=== PATIENT | female | born 1965 | race Caucasian/White ===

== ENCOUNTER → 2020-04-29 10:12 | Outpatient (BNVA) | payer OTHER, SELFPAY | PROVIDERS: PCP Internal Medicine; Referring Provider Internal Medicine; Visit Provider Internal Medicine Gastroenterology | DX: K59.01 Slow transit constipation (principal); E13.9 Other specified diabetes mellitus without complications | CPT/HCPCS: Q3014 ==

== ENCOUNTER → 2020-08-06 11:03 | Outpatient (BNVA) | payer OTHER, SELFPAY | PROVIDERS: PCP Internal Medicine; Visit Provider Internal Medicine Gastroenterology | CPT/HCPCS: 99212 ==

== ENCOUNTER → 2020-09-24 14:02 | Outpatient (BNVA) | payer OTHER, SELFPAY | PROVIDERS: PCP Internal Medicine; Visit Provider Internal Medicine Gastroenterology | DX: Z13.89 Encounter for screening for other disorder (principal) | CPT/HCPCS: Q3014 ==

== ENCOUNTER → 2020-12-23 14:01 | Outpatient (BNVA) | payer OTHER, SELFPAY | PROVIDERS: PCP Internal Medicine; Visit Provider Internal Medicine | DX: E11.40 Type 2 diabetes mellitus with diabetic neuropathy, unspecified (principal); G47.33 Obstructive sleep apnea (adult) (pediatric); Z88.8 Allergy status to other drugs, medicaments and biological substances; Z79.4 Long term (current) use of insulin; Z79.899 Other long term (current) drug therapy | CPT/HCPCS: 99202 ==

== ENCOUNTER → 2021-02-07 10:40 | Outpatient (BNVA) | payer OTHER, SELFPAY | PROVIDERS: PCP Internal Medicine; Visit Provider Internal Medicine | DX: E11.610 Type 2 diabetes mellitus with diabetic neuropathic arthropathy (principal); D12.6 Benign neoplasm of colon, unspecified; E11.40 Type 2 diabetes mellitus with diabetic neuropathy, unspecified; Z88.8 Allergy status to other drugs, medicaments and biological substances | CPT/HCPCS: 99212 ==

== ENCOUNTER → 2021-03-07 10:04 | Outpatient (BNVA) | payer OTHER, SELFPAY | PROVIDERS: Visit Provider Internal Medicine | DX: E11.40 Type 2 diabetes mellitus with diabetic neuropathy, unspecified (principal) | CPT/HCPCS: 99212 ==

== ENCOUNTER → 2022-04-23 08:04 | Outpatient (BNVA) | payer OTHER, SELFPAY | PROVIDERS: PCP Internal Medicine; Referring Provider Internal Medicine; Visit Provider Nurse Practitioner | DX: K59.01 Slow transit constipation (principal); D12.6 Benign neoplasm of colon, unspecified; F41.9 Anxiety disorder, unspecified; G47.33 Obstructive sleep apnea (adult) (pediatric); H54.3 Unqualified visual loss, both eyes; U09.9 Post COVID-19 condition, unspecified | CPT/HCPCS: 99212 ==

== ENCOUNTER 2023-01-07 09:22 | Outpatient (AMB) | payer OTHER, SELFPAY ==
--- NOTE | 2023-01-07 09:27 | MHC.OFFVIS ---
Intake Vital Signs 01/07/23 09:33 Height 5 ft 2 in Weight 132 lb 4.438 oz BMI 24.2 BP 143/62 H Blood Pressure Location Rt brachial Position Sitting Pulse 62 Intake Visit Reasons: Follow up constipation Intake Note: Patient present to in office visit today in follow up of constipation. CC: Patient reports she has been doing great and denies any GI concerns today. She states she is not doing very good because she has been losing her vision since after covid. Rn Community Required: No Accompanied by: Self / Same As Patient Allergies No Known Drug Allergies Allergy (Unknown, Verified 01/07/23 09:29) none adhesive tape Allergy (Mild, Uncoded 08/06/20 11:04) Rash HPI Follow up constipation HPI Details Assessment & Plan (1) Constipation by delayed colonic transit: ?Code(s): K59.01 - Slow transit constipation ?Plan: Lost her vision r/t COVID, she will be seeing many doctors and is even had tubes in planted (sounds like a form of glaucoma) to try to regain her vision.? However she says she has a lot of support and services that are helping her through this. She says that she has been having constipation since she saw Dr. Gomez.? She will not move her bowels every day and frequently will feel very bloated.? However, when she does move them the stool is generally on the softer side.? She was using magnesium but was taking it 1st thing in the morning and found that it would kick in in the middle the night and disturb her sleep because she had to get up to move her bowels.? It also made her feel quite bloated so she does not feel like this was an optimal treatment.? She has never used any of the [id number] laxatives, so I think will start her on senna because it is quite mild and she can use 1-2 tablets at bedtime so that he can work overnight and hopefully she can have a normal bowel movement in the morning.? She would find this much less life limiting that her prior treatment regimen. I bring up that she is due for colonoscopy this year and she is agreeable with going ahead and scheduling it.? Her last colonoscopy was in 2019 and there is a rather complex removal of a large tubular adenoma and a 3 year repeat was recommended. CIC bad, was taking magnesium in am and had to get up to move bowels - no other meds, not working well for her caused bloating Start Senna and titrate. There are no prior problems with anesthesia or sedation.? She denies any cardiac problems she does have obstructive sleep apnea treated with CPAP.? There are no infectious disease problems.? As above she had a complex TA removed in 2019. (2) Tubular adenoma of colon: ?Code(s): D12.6 - Benign neoplasm of colon, unspecified (3) Anxiety: ?Code(s): F41.9 - Anxiety disorder, unspecified (4) BAKARI (obstructive sleep apnea): ?Comment: CPAP tries every night repeating study this week to review having problems with mask. ?Code(s): G47.33 - Obstructive sleep apnea (adult) (pediatric) (5) Vision loss, bilateral: ?Code(s): H54.3 - Unqualified visual loss, both eyes (6) Post covid-19 condition, unspecified: ?Comment: Vision loss ?Code(s): U09.9 - Post COVID-19 condition, unspecified ? ? ? Orders: Orders Comprehensive Met. Panel Today D12.6 - Benign yoly plasm of colon, un specified ? Complete Blood Cou nt Auto Diff Today D12.6 - Benign yoly plasm of colon, un specified ? TSH reflex Free T4 Today K59.01 - Slow wilkinson sit constipation ? Medications: New peg 3350-electroly fide 236-22.74-6.74 -5.86 gram (Golyt alivia) ?? until feca l effluent is thuy r; do not exceed a total volume of 2 ,000 mL 240 mL PO Q10M 4, 000 mL 0RF 1 day Z12.11 - Encounter for screening for malignant neoplas m of colon ? sennosides (senna) 17.2 mg (2 x 8.6 mg) PO BEDTIME 60 caps 3RF constipat ion 30 days K59.01 - Slow wilkinson sit constipation LABS:NOT OBTAINED COLONOSCOPY BIOPSY CORRESPONDENCE On 12/31/22 @ 08:29 MarckFifi roberts Wrote To AviEstela (3) FYI - pt canceled her procedure today. Did not take her prep. Thanks On 12/08/22 @ 14:39 Shirin Fields Wrote To Shirin Fields sent Shirin Fields completed item. On 12/08/22 @ 13:59 Ilene Hinds Wrote To Shirin Fields pt only got the miralax please send bisacodyl tabs thx On 10/19/22 @ 15:11 Ilene Hinds Wrote To Flor Riddle pt has been r/s she still has meds and instructions advised to use original and just update the date and time TODAY'S VISIT She is doing well with her bowels and uses senna prn. She is losing her sight r/t MD and is sad today. She had to cancel her colonoscopy r/t hypoglycemia crisis r/t not eating and no adjustment to her diabetic regimen. I told her to cut lantus in 1/2 and skip Jardiance and have some sugary drinks to sip on so that her sugar does not drop. She is reminded to go for basic labs. Will walk to schedulers to schedule. ROV 6 mos. PFSH Medical History Constipation by delayed colonic transit Diabetes 1.5, managed as type 2 Diabetic neurogenic arthropathy High cholesterol Insomnia Mixed irritable bowel syndrome BAKARI (obstructive sleep apnea) Painful diabetic neuropathy Tubular adenoma of colon Surgical History History of esophagogastroduodenoscopy (EGD) Hx of colonoscopy Family History Mother No problems noted. Father No problems noted. Social History Household Members: None Household Members Other:: grandchild Housing: Apartment Alcohol intake: current Alcohol intake frequency: holidays/special occasions only Alcohol type: wine Current occupational status: disabled Review of Systems Const Denies fatigue, Denies fever(s), Denies night sweats, Denies poor appetite and Denies weight loss Eyes Reports blurry vision and Reports other visual disturbances ENT Reports Normal hearing present, Denies dental pain, Denies dysphagia, Denies hearing loss, Denies mouth pain, Denies odynophagia, Denies throat swelling, Denies tongue swelling and Reports other (Dentition adequate) Card Reports no additional complaints Resp Reports no additional complaints GI Denies abdominal pain, Denies melena, Denies bloating, Denies hematochezia, Reports constipation, Denies GI cramping, Denies dysphagia, Denies excessive flatus, Denies early satiety, Denies heartburn, Denies diarrhea, Denies nausea, Denies odynophagia, Denies vomiting and Denies hematemesis Skin/Breast Denies pruritus, Denies lesions, Denies rash and Denies jaundice Neuro Reports Normal hearing present and Denies Abnormal speech present Endo Denies fatigue Aller/Immun Denies throat swelling and Denies tongue swelling Physical Exam Vital Signs: Last Vital Signs Pulse 62 01/07/23 09:33 BP 143/62 H 01/07/23 09:33 BMI result Body Mass Index 24.2 Const General: cooperative, no acute distress, well developed and well groomed Nutritional Appearance: average body habitus and well nourished Orientation/consciousness: oriented to person, oriented to place and oriented to time Limitations: No language barrier and other limitations (legally blind) HEENT Head: Yes normocephalic and Yes atraumatic Eyes General: appearance normal, both eyes and all related structures Pupils: Equal, round and reactive pupils present Neck Neck: Yes normal visual inspection and Yes no lymphadenopathy Thyroid: Thyroid normal Resp Effort & Inspection: normal respiratory effort and able to speak in complete sentences Auscultation: clear to auscultation bilaterally Cardio Rate: regular rate Rhythm: regular rhythm Heart sounds: Normal, physiologic split S2 sound present Peripheral pulses: radial pulses present and posterior tibial pulses present GI Inspection: No distended and No Abdominal panniculus present Palpation (GI): Soft to palpation, nontender, no guarding, not rigid and No hepatosplenomegaly present Percussion: Yes normal to percussion Auscultation: normal bowel sounds Rectal Exam - Female: deferred Skin General skin exam: no rashes or lesions noted, turgor normal, skin not dry, no jaundice, No spider nevi and no striae Rashes: no rashes Nails: normal Neuro General: oriented to person, oriented to place and oriented to time Cranial nerves: Yes Equal, round and reactive pupils present and Yes Normal hearing present Speech: No Abnormal speech present Extrem General: Yes normal to inspection, No clubbing, No cyanosis and No edema Psych Appearance: grossly normal and well kempt Mental Status: mental status grossly normal Speech and movement: Normal speech and movement present Affect: normal affect Attitude: cooperative Thought process: Normal thought process present and not confabulating Thought content: Normal thought content present Insight: Fair insight present (Psych) Judgement: Fair judgement present (Psych) Assessment & Plan Assessment & Plan (1) Constipation by delayed colonic transit: Code(s): K59.01 - Slow transit constipation Plan: She is doing well with her bowels and uses senna prn. She is losing her sight r/t MD and is sad today. She had to cancel her colonoscopy r/t hypoglycemia crisis r/t not eating and no adjustment to her diabetic regimen. I told her to cut lantus in 1/2 and skip Jardiance and have some sugary drinks to sip on so that her sugar does not drop. She is reminded to go for basic labs. Will walk to schedulers to schedule. ROV 6 mos. (2) Macular degeneration: Code(s): H35.30 - Unspecified macular degeneration (3) Vision loss, bilateral: Code(s): H54.3 - Unqualified visual loss, both eyes Coding Level of Care Code Est Pt Level 3 (62422) Diagnoses Constipation by delayed colonic transit K59.01 Macular degeneration H35.30 Vision loss, bilateral H54.3
[2023-01-07 09:33] VITALS: BP 143/62; PULSE 62; BMI 24.2
== END 2023-01-07 10:16 | disposition home or self-care (01) ==
PROVIDERS: PCP Internal Medicine; Visit Provider Nurse Practitioner
DX: K59.01 Slow transit constipation (principal); H35.30 Unspecified macular degeneration; H54.3 Unqualified visual loss, both eyes
CPT/HCPCS: 99213

== ENCOUNTER → 2023-01-07 09:22 | Outpatient (BNVA) | payer OTHER, SELFPAY | PROVIDERS: PCP Internal Medicine; Visit Provider Nurse Practitioner | DX: K59.01 Slow transit constipation (principal); H35.30 Unspecified macular degeneration; H54.3 Unqualified visual loss, both eyes | CPT/HCPCS: 99212 ==

== ENCOUNTER 2023-04-09 09:03 | Day surgery (SDC) | payer OTHER, SELFPAY ==
[2023-04-07 11:15] VITALS: BMI 24.1
--- NOTE | 2023-04-08 10:22 | P.CONAN_ITS ---
Documented by User: Tatum Malone NP 04/08/23 10:22 HPI - Anesthesia Eval Consult details Narrative: 57yo F for Colonoscopy PMFSH Active Problems Active Problems: All Active Problems (Updated 01/07/23 @ 10:59 by LIVIER Woods) Macular degeneration (Acute) Post covid-19 condition, unspecified (Acute) Vision loss, bilateral (Acute) Anxiety (Acute) BAKARI (obstructive sleep apnea) (Acute) Tubular adenoma of colon (Acute) Painful diabetic neuropathy (Acute) Fecal incontinence (Acute) Diabetes 1.5, managed as type 2 (Acute) Constipation by delayed colonic transit (Acute) Past Medical History Medical History Constipation by delayed colonic transit Diabetes 1.5, managed as type 2 Diabetic neurogenic arthropathy High cholesterol Insomnia Mixed irritable bowel syndrome BAKARI (obstructive sleep apnea) Painful diabetic neuropathy Tubular adenoma of colon Family History Family History Mother No problems noted. Father No problems noted. Surgical History Surgical History History of esophagogastroduodenoscopy (EGD) Hx of colonoscopy Social History Social History Household Members: None Household Members Other:: grandchild Housing: Apartment Alcohol intake: current Alcohol intake frequency: holidays/special occasions o nly Alcohol type: wine Patient Tobacco Use Status: Never used Tobacco Use of substances other than those prescribed or required for medical reasons: No Are you DNR?: No Advance Directives: No Advance Directives Information Provided: Yes Current occupational status: disabled Meds Allergies Allergy/AdvReac Type Severity Reaction Status Date / Time No Known Drug Allergies Allergy Unknown none Verified 01/07/23 09:29 adhesive tape Allergy Mild Rash Uncoded 08/06/20 11:04 Home Medications Medication Instructions Recorded Confirmed Last Taken Type citalopram 40 mg tablet 20 mg PO DAILY 04/29/20 12/23/20 Unknown History insulin glargine 100 unit/mL (3 10 unit subcut BID 04/29/20 12/23/20 Unknown History mL) subcutaneous pen (Lantus Solostar U-100 Insulin) insulin lispro 100 unit/mL 10 unit subcut TID 04/29/20 12/23/20 Unknown History subcutaneous pen (Humalog KwikPen (U-100) Insulin) cetirizine 10 mg tablet (Zyrtec) 10 mg PO DAILY PRN 09/24/20 12/23/20 Unknown History empagliflozin 10 mg tablet 10 mg PO DAILY 09/24/20 12/23/20 Unknown History (Jardiance) sertraline 50 mg tablet 50 mg PO DAILY 01/07/23 Unknown History Exam Exam Date and Time: April 08, 2023 1022 Height,Weight and Vital Signs: Height 5 ft 2 in Weight 59.874 kg Assessment and Plan Assessment Anesthesia Assessment: Chart Reviewed Documented by User: Anjelica Kenney MD 04/09/23 10:52 [facility] Past Medical History Medical History Constipation by delayed colonic transit Diabetes 1.5, managed as type 2 Diabetic neurogenic arthropathy High cholesterol Insomnia Mixed irritable bowel syndrome BAKARI (obstructive sleep apnea) Painful diabetic neuropathy Tubular adenoma of colon Family History Family History Mother No problems noted. Father No problems noted. Family history of problems with anesthesia: No Surgical History Surgical History History of esophagogastroduodenoscopy (EGD) Hx of colonoscopy History of Problems with Anesthesia: No Social History Social History Household Members: None Household Members Other:: grandchild Housing: Apartment Alcohol intake: current Alcohol intake frequency: holidays/special occasions only Alcohol type: wine Patient Tobacco Use Status: Never used Tobacco Use of substances other than those prescribed or required for medical reasons: No Are you DNR?: No Advance Directives: No Advance Directives Information Provided: Yes Current occupational status: disabled Meds Allergies Allergy/AdvReac Type Severity Reaction Status Date / Time No Known Drug Allergies Allergy Unknown none Verified 01/07/23 09:29 adhesive tape Allergy Mild Rash Uncoded 08/06/20 11:04 Home Medications Medication Instructions Recorded Confirmed Last Taken Type citalopram 40 mg tablet 20 mg PO DAILY 04/29/20 12/23/20 Unknown History insulin glargine 100 unit/mL (3 10 unit subcut BID 04/29/20 12/23/20 Unknown History mL) subcutaneous pen (Lantus Solostar U-100 Insulin) insulin lispro 100 unit/mL 10 unit subcut TID 04/29/20 12/23/20 Unknown History subcutaneous pen (Humalog KwikPen (U-100) Insulin) cetirizine 10 mg tablet (Zyrtec) 10 mg PO DAILY PRN 09/24/20 12/23/20 Unknown History empagliflozin 10 mg tablet 10 mg PO DAILY 09/24/20 12/23/20 Unknown History (Jardiance) sertraline 50 mg tablet 50 mg PO DAILY 01/07/23 Unknown History Exam Airway Mallampati Class: II (slightly loose tooth top lateral) TM Dist: >3cm Neck ROM: Full Heart: rrr Lungs: cta Assessment and Plan Assessment Anesthesia Assessment: Anesthesia Plan Discussed Final Anesthetic Review Family History of Problems with Anesthesia: No History of Problems with Anesthesia: No NPO: Yes ASA Class: III Final Preanesthetic Review: No Changes in Pt Med Stat, Meds/Allgs Chart Reviewed and Consent Obtained/Reviewed Patient Risk: Intermediate Procedure Risk: Intermediate Anesthetic Plan Anesthetic Plan: MAC: Disposition: Standard PACU
--- NOTE | 2023-04-09 10:07 | MHC.SHP ---
Pre-Procedural Eval Section A Date of Service: 04/09/23 The patient is an INPATIENT: No The History & Physical has been completed within 30 days and I have reviewed it.: No Section B Chief Complaint: surveillance for colon polyps Relevant Family History (Specify if Yes): No Relevant Social History: None Present Medications: see Short Stay Collaborative assessment Medical History: Significant History (Constipation by delayed colonic transit Diabetes 1.5, managed as type 2 Diabetic neurogenic arthropathy High cholesterol Insomnia Mixed irritable bowel syndrome BAKARI (obstructive sleep apnea) Painful diabetic neuropathy Tubular adenoma of colon) History of Previous Operations: Relevant previous surgery/procedure and date(s) ( history of EGD and colonoscopy) Allergies: Allergies Allergy/AdvReac Type Severity Reaction Status Date / Time No Known Drug Allergies Allergy Unknown none Verified 01/07/23 09:29 adhesive tape Allergy Mild Rash Uncoded 08/06/20 11:04 Review of Systems Sugical H&P ROS: Negative: Constitution, Cardiovascular, Respiratory and Gastrointestinal Exam Surgical H&P Exam: Normal: Heart, Normal: Lungs, Normal: Extremities and Normal: Abdomen Plan Diagnosis/Plan: Unchanged I have reviewed the history and physical and performed a pertinent physical examination on my patient. No changes have occurred unless specified. Time Spent With Patient Time: Total time managing care of this patient today ____ minutes.
[2023-04-09 10:44] VITALS: BP 120/66; PULSE 80; RESP 18; TEMP 36.5; O2SAT 100
--- NOTE | 2023-04-09 10:51 | W.PM.OPN ---
Operative Note Operative Note Date of Service: 04/09/23 Narrative: COLONOSCOPY TILL CECUM WITH BIOPSY AND SNARE POLYPECTOMY Pre-op diagnosis: surveillance for colon polyps Post-op diagnosis:? colon polyp, diverticulosis Endoscopist:? Nicko Walter MD Anesthesia:?MAC Consent: Indications for the procedure and potential complications of bleeding, perforation, reaction to medications and missed diagnosis were discussed with the patient and informed consent was obtained. Instrument: Olympus PCF H 190 L variable stiffness pediatric colonoscope Monitoring: Vital signs and clinical assessment, intermittent blood pressure monitoring, continuous EKG monitoring, Pulse oximetry and Carbon Dioxide monitoring were done throughout the procedure. Please see anesthesia flowsheet. Colon withdrawl time was 18 minutes. Procedure: The patient was placed in the left lateral decubitis position and pre-procedure medications were administered. After a digital rectal examination of the ano-rectum, the video colonoscope was inserted into the rectum and advanced through the colon to the cecum. The colonoscope was slowly withdrawn in a retrograde panoramic fashion and the colon mucosa was carefully examined including a retroflexed view of the rectum. Findings and interventions are described below. Procedure Difficulty: Without difficulty Findings: Terminal Ileum: Not evaluated Cecum: Normal Ascending Colon: A 5-6 mm sessile polyp in the mid AC - removed by a cold snare. A biopsy forcep was used to retrieved the polyp. Transverse Colon: Normal Descending Colon: Normal Sigmoid Colon: Moderate diverticulosis Rectum: Normal Ano-rectum: Normal Colon preparation: Good Impression and Post Procedure Diagnosis: Colonoscopy Findings: One small polyp removed Moderate diverticulosis seen in the sigmoid colon Plan: Await pathology results Patient has an appointment on 04/22/23 in the [facility] with Estela Cárdenas NP. Repeat Colonoscopy interval based on path results - in 5 years if polyps are adenomatous and due to a history of adenomatous colon polyps. Above findings were reviewed with the patient and colon polyps and diverticulosis handouts were given in the discharge area
[2023-04-09 11:00] LABS: Glucose, Whole Blood 172 mg/dL (60-115)
[2023-04-09 11:31] VITALS: BP 123/67; PULSE 75; RESP 16; TEMP 36.6; O2SAT 96
[2023-04-09 11:46] VITALS: BP 127/66; PULSE 74; RESP 16; O2SAT 99
[2023-04-09 12:01] VITALS: BP 132/67; PULSE 85; RESP 16; TEMP 36.6; O2SAT 100
== END 2023-04-09 12:42 | disposition home or self-care (01) ==
PROVIDERS: PCP Internal Medicine; Visit Provider Internal Medicine Gastroenterology
PROC: 0DJD8ZZ Inspection of Lower Intestinal Tract, Via Natural or Artificial Opening Endoscopic (ICD-10-PCS; CPT 45378; principal; 2023-04-09 11:00)
DX: Z12.11 Encounter for screening for malignant neoplasm of colon (principal); Z86.010 Personal history of colon polyps; D12.2 Benign neoplasm of ascending colon; K57.30 Diverticulosis of large intestine without perforation or abscess without bleeding; K59.01 Slow transit constipation; K58.2 Mixed irritable bowel syndrome; G47.33 Obstructive sleep apnea (adult) (pediatric); E78.00 Pure hypercholesterolemia, unspecified; E13.40 Other specified diabetes mellitus with diabetic neuropathy, unspecified; E13.610 Other specified diabetes mellitus with diabetic neuropathic arthropathy; Z79.4 Long term (current) use of insulin; Z79.51 Long term (current) use of inhaled steroids; Z79.899 Other long term (current) drug therapy; L23.1 Allergic contact dermatitis due to adhesives
CPT/HCPCS: 45385; 45380; 82947; 88305

== ENCOUNTER → 2023-04-09 09:03 | Outpatient (BNV) | payer OTHER, SELFPAY | PROVIDERS: PCP Internal Medicine; Visit Provider Internal Medicine Gastroenterology | DX: Z12.11 Encounter for screening for malignant neoplasm of colon (principal); K57.30 Diverticulosis of large intestine without perforation or abscess without bleeding; D12.2 Benign neoplasm of ascending colon | CPT/HCPCS: 45385 ==

== ENCOUNTER 2023-04-22 10:08 | Outpatient (AMB) | payer OTHER, SELFPAY ==
--- NOTE | 2023-04-22 10:10 | A.OFFVIS_ITS ---
Intake Vital Signs 04/22/23 10:14 Height 5 ft 2 in Weight 130 lb BMI 23.8 BP 130/71 Blood Pressure Location Lt brachial Position Sitting Pulse 90 Intake Visit Reasons: S/P [place]; Dr. Walter Intake Note: Patient presents to in office visit today in follow up colonoscopy. CC: Pt underwent colonoscopy on 04/[address] Walter. She reports she was having bowel incontinence that had become more often since after procedure. She also c/o nausea and heartburn. Allergies No Known Drug Allergies Allergy (Unknown, Verified 04/22/23 10:19) none adhesive tape Allergy (Mild, Uncoded 08/06/20 11:04) Rash HPI S/P [place]; Dr. Walter HPI Details Assessment & Plan (1) Constipation by delayed colonic wilkinson sit: Code(s): K59.01 - Slow transit constipation Plan: She is doing well with her bowels and uses senna prn. She is losing her sight r/t MD and is sad today. She had to cancel her colonoscopy r/t hypoglycemia crisis r/t not eating and no adjustment to her diabetic regimen. I told her to cut lantus in 1/2 and skip Jardiance and have some sugary drinks to sip on so that her sugar does not drop. She is reminded to go for basic labs. Will walk to schedulers to schedule. ROV 6 mos. (2) Macular degeneration: Code(s): H35.30 - Unspecified macular degeneration (3) Vision loss, bilateral: Code(s): H54.3 - Unqualified visual loss, both eyes: COLONOSCOPY 04/09/23 Findings: Terminal Ileum: Not evaluated Cecum: Normal Ascending Colon: A 5-6 mm sessile polyp in the mid AC - removed by a cold snare. A biopsy forcep was used to retrieved the polyp. Transverse Colon: Normal Descending Colon: Normal Sigmoid Colon: Moderate diverticulosis Rectum: Normal Ano-rectum: Normal Colon preparation: Good Impression and Post Procedure Diagnosis: Colonoscopy Findings: One small polyp removed Moderate diverticulosis seen in the sigmoid colon Plan: Await pathology results Patient has an appointment on 04/22/23 in the [facility] with Estela Cárdenas NP. Repeat Colonoscopy interval based on path results - in 5 years if polyps are adenomatous and due to a history of adenomatous colon polyps Received: 04/09/23 Diagnosis Colon, ascending, polyp: Tubular adenoma; negative for high-grade dysplasia and carcinoma TODAY'S VISIT She is agreeable to a 5 year follow up. The procedure was well tolerated. The results were explained and the patient is agreeable to the follow-up interval as stated. Education was provided to tell any 1st degree relatives about their findings to be sure that they are screened by age 45. Educated that they will be put on a recall list when it is time for their repeat scope but should they move out of state or away from the hospital they will need to remember along with their primary to repeat the procedure in a timely fashion to avoid any adverse complications. She started having diarrhea and overnight accidents shortly before the colonoscopy. This seems to coincide with her starting her new medication for glaucoma (acetazolamide) which does have this as a possibly s/e. I will start her on loprimide 1-2 tabs at bedtime. ROV 6 weeks. 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 Father No problems noted. Social History Household Members: None Household Members Other:: grandchild Housing: Apartment Alcohol intake: current Alcohol intake frequency: holidays/special occasions only Alcohol type: wine Patient Tobacco Use Status: Never used Tobacco Current occupational status: disabled Review of Systems Const Denies fatigue, Denies fever(s), Denies night sweats, Denies poor appetite and Denies weight loss ENT Reports Normal hearing present, Denies dental pain, Denies dysphagia, Denies hearing loss, Denies mouth pain, Denies odynophagia, Denies throat swelling, Denies tongue swelling and Reports other (Dentition adequate) Card Reports no additional complaints Resp Reports no additional complaints GI Denies abdominal pain, Denies melena, Denies bloating, Denies hematochezia, Denies constipation, Denies GI cramping, Denies dysphagia, Denies excessive flatus, Denies early satiety, Denies heartburn, Reports diarrhea, Denies nausea, Denies odynophagia, Denies vomiting and Denies hematemesis Skin/Breast Denies pruritus, Denies lesions, Denies rash and Denies jaundice Neuro Reports Normal hearing present and Denies Abnormal speech present Endo Denies fatigue Aller/Immun Denies throat swelling and Denies tongue swelling Physical Exam Vital Signs: Last Vital Signs Pulse 90 04/22/23 10:14 BP 130/71 04/22/23 10:14 BMI result Body Mass Index 23.8 Const General: cooperative, no acute distress, well developed and well groomed Nutritional Appearance: average body habitus and well nourished Orientation/consciousness: oriented to person, oriented to place and oriented to time Limitations: No language barrier HEENT Head: Yes normocephalic and Yes atraumatic Eyes General: appearance normal, both eyes and all related structures Pupils: Equal, round and reactive pupils present Neck Neck: Yes normal visual inspection and Yes no lymphadenopathy Thyroid: Thyroid normal Resp Effort & Inspection: normal respiratory effort and able to speak in complete sentences Auscultation: clear to auscultation bilaterally Cardio Rate: regular rate Rhythm: regular rhythm Heart sounds: Normal, physiologic split S2 sound present Peripheral pulses: radial pulses present and posterior tibial pulses present GI Inspection: No distended and No Abdominal panniculus present Palpation (GI): Soft to palpation, nontender, no guarding, not rigid and No hepatosplenomegaly present Percussion: Yes normal to percussion Auscultation: normal bowel sounds Rectal Exam - Female: deferred Skin General skin exam: no rashes or lesions noted, turgor normal, skin not dry, no jaundice, No spider nevi and no striae Rashes: no rashes Nails: normal Neuro General: oriented to person, oriented to place and oriented to time Cranial nerves: Yes Equal, round and reactive pupils present and Yes Normal hearing present Speech: No Abnormal speech present Extrem General: Yes normal to inspection, No clubbing, No cyanosis and No edema Psych Appearance: grossly normal and well kempt Mental Status: mental status grossly normal Speech and movement: Normal speech and movement present Affect: normal affect Attitude: cooperative Thought process: Normal thought process present and not confabulating Thought content: Normal thought content present Insight: Limited insight present (Psych) Judgement: Limited judgement present (Psych) Assessment & Plan Assessment & Plan (1) Tubular adenoma of colon: Comment: 2022 scope equals 1 TA repeat in 5 years Code(s): D12.6 - Benign neoplasm of colon, unspecified (2) Diarrhea due to drug: Code(s): K52.1 - Toxic gastroenteritis and colitis Plan She is agreeable to a 5 year follow up. The procedure was well tolerated. The results were explained and the patient is agreeable to the follow-up interval as stated. Education was provided to tell any 1st degree relatives about their findings to be sure that they are screened by age 45. Educated that they will be put on a recall list when it is time for their repeat scope but should they move out of state or away from the hospital they will need to remember along with their primary to repeat the procedure in a timely fashion to avoid any adverse complications. She started having diarrhea and overnight accidents shortly before the colonoscopy. This seems to coincide with her starting her new medication for glaucoma (acetazolamide) which does have this as a possibly s/e. I will start her on loprimide 1-2 tabs at bedtime. ROV 6 weeks. Medications: New loperamide (Imodium A-D) 4 mg (2 x 2 mg) PO BEDTIME 60 caps 3RF loose stool K52.1 - Toxic gastroenteritis and colitis On Hold sennosides (senna) Hold Comment: Doctor's Order 17.2 mg (2 x 8.6 mg) PO BEDTIME 30 days 60 caps 3RF constipation K59.01 - Slow transit constipation Coding Level of Care Code Est Pt Level 3 (53868) Diagnoses Tubular adenoma of colon D12.6 Diarrhea due to drug K52.1
[2023-04-22 10:14] VITALS: BP 130/71; PULSE 90; BMI 23.8
== END 2023-04-22 10:44 | disposition home or self-care (01) ==
PROVIDERS: PCP Internal Medicine; Visit Provider Nurse Practitioner
DX: D12.6 Benign neoplasm of colon, unspecified (principal); K52.1 Toxic gastroenteritis and colitis
CPT/HCPCS: 99213

== ENCOUNTER → 2023-04-22 10:08 | Outpatient (BNVA) | payer OTHER, SELFPAY | PROVIDERS: PCP Internal Medicine; Visit Provider Nurse Practitioner | DX: D12.6 Benign neoplasm of colon, unspecified (principal); K52.1 Toxic gastroenteritis and colitis | CPT/HCPCS: 99212 ==

== ENCOUNTER 2024-12-01 09:41 | Outpatient (REF) | payer OTHER, SELFPAY ==
[2024-12-01 12:46] LABS: Estimated Average Glucose 189 mg/dL; Hemoglobin A1c % 8.2 % (<6.0)
[2024-12-01 13:03] LABS: Alanine Aminotransferase 34 U/L (0-31); Albumin Level 4.7 g/dL (3.5-5.0); Alkaline Phosphatase 91 U/L (39-117); Anion Gap 15 (12-20); Aspartate Amino Transferase 35 U/L (5-31); Bilirubin Total 0.3 mg/dL (0.0-1.0); Blood Urea Nitrogen 12 mg/dL (9-16); C Reactive Protein 0.22 mg/dL (< or = 0.50); Calcium 9.3 mg/dL (8.4-10.2); Carbon Dioxide 24 mmol/L (22-29); Chloride 106 mmol/L (96-108); Estimated Glomerular Filt Rate > 60; Glucose Random 134 mg/dL (60-115); Potassium 3.6 mmol/L (3.3-5.1); Sodium 141 mmol/L (135-145); Total Protein 7.8 g/dL (6.5-8.0)
[2024-12-01 13:23] LABS: TSH reflex Free T4 0.64 uIU/mL (0.32-4.0)
[2024-12-04 22:28] LABS: Transglutaminase Ab IgG <1.0 U/mL; Transglutaminase IgA <1.0 U/mL
[2024-12-06 02:14] LABS: Class Almond 0; Class Brazil Nut 0; Class Cashew 0; Class Codfish 0; Class Cow's Milk 0; Class Egg white 0; Class Hazelnut 0; Class Macadamia Nut 0; Class Peanut 0; Class Salmon 0; Class Scallop 0; Class Sesame Seed 0; Class Shrimp 0/1; Class Soybean 0; Class Tuna 0; Class Walnut 0; Class Wheat 0; F001-IgE Egg White <0.10 kU/L; F002-IgE Milk <0.10 kU/L; F003-IgE Codfish <0.10 kU/L; F004-IgE Wheat <0.10 kU/L; F010-IgE Sesame Seed <0.10 kU/L; F013-IgE Peanut <0.10 kU/L; F014-IgE Soybean <0.10 kU/L; F017-IgE Hazelnut (Filbert) <0.10 kU/L; F018-IgE Brazil Nut <0.10 kU/L; F020-IgE Almond <0.10 kU/L; F024-IgE Shrimp 0.14 kU/L; F040-IgE Tuna <0.10 kU/L; F041 IgE Salmon <0.10 kU/L; F202-IgE Cashew Nut <0.10 kU/L; F256-IgE Walnut <0.10 kU/L; F338-IgE Scallop <0.10 kU/L; F345-IgE Macadmia Nut <0.10 kU/L
== END 2024-12-01 09:42 | disposition home or self-care (01) ==
LOC: HO.LAB 09:41
PROVIDERS: PCP Internal Medicine; Visit Provider Nurse Practitioner
DX: K58.2 Mixed irritable bowel syndrome (principal); R10.10 Upper abdominal pain, unspecified; R19.7 Diarrhea, unspecified; Z91.09 Other allergy status, other than to drugs and biological substances; E11.9 Type 2 diabetes mellitus without complications
CPT/HCPCS: 36415; 80053; 83036; 84443; 86003; 86140; 86364; 99212

== ENCOUNTER 2024-12-01 09:41 | Outpatient (AMB) | payer OTHER, SELFPAY ==
--- NOTE | 2024-12-01 09:44 | MHC.OFFVIS ---
Vital Signs 12/01/24 09:53 Height 5 ft 2 in Weight 145 lb BMI 26.5 BP 98/52 L Blood Pressure Location Rt brachial Position Sitting Pulse 92 Pulse Source Pulse Oximeter Pulse Oximetry (%) 93 Oxygen Delivery Method Room Air Intake Visit Reasons: f/u Intake Note: Est pt for mgmt of IBS-M. GILMA 2022. CC; C.O. gas, bloating, IBS - M chronic persistence, belching. Pt has stopped all her GI meds as she did not feel that, even with them, she was noticing any relief or differences. Department Manager Required: No Accompanied by: Family/Other Allergies adhesive tape Allergy (Unknown, Verified 12/01/24 09:50) Rash No Known Drug Allergies Allergy (Unknown, Verified 12/01/24 09:50) none lorazepam Adverse Reaction (Unknown, Verified 12/01/24 09:50) Unknown HPI HPI f/u: Details: Assessment & Plan (1) Tubular adenoma of colon: Comment: 2022 scope equals 1 TA repeat in 5 years Code(s): D12.6 - Benign neoplasm of colon, unspecified (2) Diarrhea due to drug: Code(s): K52.1 - Toxic gastroenteritis and colitis Plan She is agreeable to a 5 year follow up. The procedure was well tolerated. The results were explained and the patient is agreeable to the follow-up interval as stated. Education was provided to tell any 1st degree relatives about their findings to be sure that they are screened by age 45. Educated that they will be put on a recall list when it is time for their repeat scope but should they move out of state or away from the hospital they will need to remember along with their primary to repeat the procedure in a timely fashion to avoid any adverse complications. She started having diarrhea and overnight accidents shortly before the colonoscopy. This seems to coincide with her starting her new medication for glaucoma (acetazolamide) which does have this as a possibly s/e. I will start her on loprimide 1-2 tabs at bedtime. ROV 6 weeks. Medications: New loperamide (Imodium A-D) 4 mg (2 x 2 mg) PO BEDTIME 60 caps 3RF loose stool K52.1 - Toxic gastroenteritis and colitis On Hold sennosides (senna) Hold Comment: Doctor's Order 17.2 mg (2 x 8.6 mg) PO BEDTIME 30 days 60 caps 3RF constipation K59.01 - Slow transit constipation TODAY'S VISIT The patient has been lost to follow-up since 04/2023 This started about 8 mos ago suddenly with equal diarrhea alt with [facility]. She had a pelvic and bladder US, no labs, no stool. She was on fiber, senna, bisacodyl, colace and magnesium as they were not helping. Her PCP is out of [place] associated with [facility]. She is also having quite a lot of dyspepsia with a great deal of burping and upset stomach which is limiting how much she can eat. She has a lot of bloating. Despite not being able to eat much she has also gained about 10 lb which she can not well explained. She isn't insulin dependent diabetic and has had some episodes that might be brittle control with her insulin with sweating and feeling generally unwell. Her A1c is been about 8% per her report. She does have early satiety. She occasionally has discomfort in the left upper quadrant but no severe abdominal pain. The differential diagnosis is quite wide but I think her diabetes control definitely factors into how the GI system is reacting. I think we need to get a thyroid to explore her complaint of weight gain along with a gastric emptying study. Also some basic labs along with some food allergy testing to see if there is any other contributing factors to the diarrheal phase and also consider the possibility of exocrine pancreatic insufficiency along with SIBO. 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 Father No problems noted. Social History Household Members: None Household Members Other:: grandchild Housing: Apartment Alcohol intake: current Alcohol intake frequency: holidays/special occasions only Alcohol type: wine Patient Tobacco Use Status: Never used Tobacco Current occupational status: disabled Review of Systems Const Denies fatigue, Denies fever(s), Denies night sweats, Denies poor appetite and Denies weight loss ENT Reports Normal hearing present, Denies dental pain, Denies dysphagia, Denies hearing loss, Denies mouth pain, Denies odynophagia, Denies throat swelling, Denies tongue swelling and Reports other (Dentition adequate) Card Reports no additional complaints Resp Reports no additional complaints GI Details: Reports abdominal pain, Denies melena, Reports bloating, Denies hematochezia, Reports constipation, Denies GI cramping, Denies dysphagia, Reports excessive flatus, Denies early satiety, Reports heartburn, Reports diarrhea, Denies nausea, Denies odynophagia, Denies vomiting and Denies hematemesis Skin/Breast Denies pruritus, Denies lesions, Denies rash and Denies jaundice Neuro Reports Normal hearing present and Denies Abnormal speech present Endo Denies fatigue Aller/Immun Denies throat swelling and Denies tongue swelling Physical Exam Vital Signs: Last Vital Signs Pulse 92 12/01/24 09:53 BP 98/52 L 12/01/24 09:53 Pulse Ox 93 12/01/24 09:53 Oxygen Delivery Method Room Air 12/01/24 09:53 BMI result Body Mass Index 26.5 Const General: cooperative, no acute distress, well developed and well groomed Nutritional Appearance: well nourished and obese centrally obese Orientation/consciousness: oriented to person, oriented to place and oriented to time Limitations: No language barrier, ambulation with cane and other limitations HEENT Head: Yes normocephalic and Yes atraumatic Eyes General: appearance normal, both eyes and all related structures Pupils: Equal, round and reactive pupils present Neck Neck: Yes normal visual inspection and Yes no lymphadenopathy Thyroid: Thyroid normal Resp Effort & Inspection: normal respiratory effort and able to speak in complete sentences Auscultation: clear to auscultation bilaterally Cardio Rate: regular rate Rhythm: regular rhythm Heart sounds: Normal, physiologic split S2 sound present Peripheral pulses: radial pulses present and posterior tibial pulses present GI Inspection: No distended, Yes Abdominal panniculus present and Yes obesity Palpation (GI): Soft to palpation, nontender, no guarding, not rigid and No hepatosplenomegaly present Percussion: Yes normal to percussion Auscultation: normal bowel sounds Rectal Exam - Female: deferred Skin General skin exam: no rashes or lesions noted, turgor normal, skin not dry, no jaundice, No spider nevi and no striae Rashes: no rashes Nails: normal Neuro General: oriented to person, oriented to place and oriented to time Cranial nerves: Yes Equal, round and reactive pupils present and Yes Normal hearing present Speech: No Abnormal speech present Extrem General: Yes normal to inspection, No clubbing, No cyanosis and No edema Psych Appearance: grossly normal and well kempt Mental Status: mental status grossly normal Speech and movement: Normal speech and movement present Affect: normal affect Attitude: cooperative Thought process: Normal thought process present and not confabulating Thought content: Normal thought content present Insight: Limited insight present (Psych) Judgement: Limited judgement present (Psych) Assessment & Plan Assessment & Plan (1) Irritable bowel syndrome with both constipation and diarrhea: Code(s): K58.2 - Mixed irritable bowel syndrome Category: Medical (2) Upper abdominal pain: Code(s): R10.10 - Upper abdominal pain, unspecified Category: Medical (3) Diarrhea: Code(s): R19.7 - Diarrhea, unspecified Category: Medical Plan The patient has been lost to follow-up since 04/2023 This started about 8 mos ago suddenly with equal diarrhea alt with [facility]. She had a pelvic and bladder US, no labs, no stool. She was on fiber, senna, bisacodyl, colace and magnesium as they were not helping. Her PCP is out of [place] associated with [facility]. She is also having quite a lot of dyspepsia with a great deal of burping and upset stomach which is limiting how much she can eat. She has a lot of bloating. Despite not being able to eat much she has also gained about 10 lb which she can not well explained. She isn't insulin dependent diabetic and has had some episodes that might be brittle control with her insulin with sweating and feeling generally unwell. Her A1c is been about 8% per her report. She does have early satiety. She occasionally has discomfort in the left upper quadrant but no severe abdominal pain. The differential diagnosis is quite wide but I think her diabetes control definitely factors into how the GI system is reacting. I think we need to get a thyroid to explore her complaint of weight gain along with a gastric emptying study. Also some basic labs along with some food allergy testing to see if there is any other contributing factors to the diarrheal phase and also consider the possibility of exocrine pancreatic insufficiency along with SIBO. Return office visit in 4 weeks Orders: Orders C Reactive Protein 12/01/24 K58.2 - Mixed irritable bowel syndrome, R10.10 - Upper abdominal pain, unspecified, R19.7 - Diarrhea, unspecified Transglutaminase IgA 12/01/24 K58.2 - Mixed irritable bowel syndrome, R10.10 - Upper abdominal pain, unspecified, R19.7 - Diarrhea, unspecified Transglutaminase Ab IgG 12/01/24 K58.2 - Mixed irritable bowel syndrome, R10.10 - Upper abdominal pain, unspecified, R19.7 - Diarrhea, unspecified TSH reflex Free T4 12/01/24 K58.2 - Mixed irritable bowel syndrome, R10.10 - Upper abdominal pain, unspecified, R19.7 - Diarrhea, unspecified NM gastric emptying study 12/01/24 K58.2 - Mixed irritable bowel syndrome, R10.10 - Upper abdominal pain, unspecified, R19.7 - Diarrhea, unspecified Hemoglobin A1c 12/01/24 K58.2 - Mixed irritable bowel syndrome, R10.10 - Upper abdominal pain, unspecified, R19.7 - Diarrhea, unspecified Comprehensive Met. Panel 12/01/24 K58.2 - Mixed irritable bowel syndrome, R10.10 - Upper abdominal pain, unspecified, R19.7 - Diarrhea, unspecified US abdomen complete 12/01/24 K58.2 - Mixed irritable bowel syndrome, R10.10 - Upper abdominal pain, unspecified, R19.7 - Diarrhea, unspecified Medications: Discontinued loperamide Discontinued Reason: Patient no longer taking 4 mg (2 x 2 mg) PO BEDTIME 60 caps 3RF loose stool K52.1 - Toxic gastroenteritis and colitis Coding Level of Care Code Est Pt Level 4 (64342) Diagnoses Irritable bowel syndrome with both constipation and diarrhea K58.2 Upper abdominal pain R10.10 Diarrhea R19.7
[2024-12-01 09:53] VITALS: BP 98/52; PULSE 92; O2SAT 93; BMI 26.5
--- OUTSIDE RECORDS SUMMARY | 2024-12-01 09:53 | XMS_ITS | Data Portability ---
Author Organization [employer] Address [address] [place] [address] Care Team Providers Care Accounts Payable Manager Name Role Phone [facility] Referring Provider [phone] Assessment No assessment recorded. Plan of Treatment Reminders Order Date Submit Date Provider Last Modified By Organization Details Last Modified Time Details Appointments None record ed. Lab None record ed. Referral None record ed. Procedures None record ed. Surgeries None record ed. Imaging None record ed. Medication Orders None record ed. Patient TargetsNo targets recorded. Patient InstructionsNo instructions recorded. Reason for Referral None Reported. Medical Equipment None Reported. Medications Name Sig Start Date Stop Date Status Note LastModified by Organization Details LastModified Time latanoprost 0.005 % eye drops INSTILL 1 DROP IN BOTH EYES AT BEDTIME active Not Available Not Available N ot Available BD Alcohol Swabs USE 4 TIMES DAILY BEFORE TESTING BLOOD GLUCOSE active Not Available Not Available No t Available atorvastatin 80 mg tablet TAKE 1 TABLET BY MOUTH DAILY active Not Available Not Available Not Available trazodone 50 mg tablet TAKE 1 TABLET BY MOUTH EVERY NIGHT AT BEDTIME TO HELP WITH FALLING ASLEEP active Not Available Not Available No t Available cetirizine 10 mg tablet TAKE 1 TABLET BY MOUTH EVERY DAY active Not Available Not Available No t Available acetazolamid e 250 mg tablet active Not Available Not Available Not Available travoprost 0.004 % eye drops INSTILL 1 DROP INTO EACH EYE EVERY NIGHT AT BEDTIME active Not Available Not Available N ot Available lidocaine-pr ilocaine 2.5 %-2.5 % topical cream APPLY TO THE BOTTOM OF FEET 2 TO 3 TIMES DAILY active Not Available Not Available No t Available ketorolac 0.5 % eye drops INSTILL 1 DROP IN LEFT EYE FOUR TIMES DAILY. START AFTER SURGERY active Not Available Not Available No t Available citalopram 20 mg tablet TAKE 1 TABLET BY MOUTH EVERY DAY DIRECTED active Not Available Not Available No t Available prednisolone acetate 1 % eye drops,suspen abbe SHAKE LIQUID AND INSTILL 1 DROP IN LEFT EYE 6 TIMES A DAY. START AFTER SURGERY active Not Available Not Available No t Available magnesium oxide 400 mg (241.3 mg magnesium) tablet TAKE 1 TABLET BY MOUTH TWICE DAILY active Not Available Not Available No t Available neomycin-lynda ymyxin-dexam eth 3.5 mg/mL-10,000 unit/mL-0.1% eye drops SHAKE LIQUID AND INSTILL 1 DROP IN RIGHT EYE FOUR TIMES DAILY FOR 5 DAYS active Not Available Not Available No t Available brimonidine 0.2 % eye drops INSTILL 1 DROP IN BOTH EYES THREE TIMES DAILY active Not Available Not Available No t Available dorzolamide 22.3 mg-timolol 6.8 mg/mL eye drops PLACE 1 DROP INTO EACH EYE 2 TIMES A DAY active Not Available Not Available Not Available hydroxyzine HCl 25 mg tablet TAKE 1 TABLET BY MOUTH THREE TIMES DAILY NEEDED FOR ITCHING OR ANXIETY active Not Available Not Available N ot Available lisinopril 5 mg tablet TAKE 1 TABLET BY MOUTH DAILY active Not Available Not Available Not Available loteprednol etabonate 0.5 % eye drops,suspen abbe INSTILL ONE DROP IN LEFT EYE 3 TIMES A DAY FOR ONE WEEK THEN TAPER TO TWICE A DAY UNTIL SEEN NEXT active Not Available Not Available No t Available lorazepam 1 mg tablet TAKE 1 TABLET BY MOUTH DAILY NEEDED FOR ANXIETY active Not Available Not Available Not Available ibuprofen 600 mg tablet TAKE 1 TABLET BY MOUTH THREE TIMES DAILY FOR 14 DAYS WITH FOOD OR MILK active Not Available Not Available No t Available fluticasone propionate 50 mcg/actuatio n nasal spray,suspen abbe SHAKE LIQUID AND USE 2 SPRAYS IN EACH NOSTRIL DAILY active Not Available Not Available No t Available sertraline 50 mg tablet TAKE 1 TABLET BY MOUTH DAILY active Not Available Not Available Not Available brimonidine 0.15 % eye drops INSTILL 1 DROP IN EACH EYE THREE TIMES DAILY active Not Available Not Available No t Available amoxicillin 875 mg-potassium clavulanate 125 mg tablet TAKE 1 TABLET BY MOUTH EVERY 12 HOURS FOR 7 DAYS active Not Available Not Available N ot Available Novolog FlexPen U-100 Insulin aspart 100 unit/mL (3 mL) subcutaneous active Not Available Not Available Not Available moxifloxacin 0.5 % eye drops INSTILL 1 DROP IN RIGHT EYE FOUR TIMES DAILY FOR 7 DAYS. START AFTER SURGERY active Not Available Not Available No t Available Sure Comfort Pen Needle 31 gauge x 3/16 USE TO INJECT INSULIN UP TO 5 TIMES A DAY active Not Available Not Available No t Available FreeStyle Lite Strips USE TO CHECK BLOOD SUGAR 3-4 TIMES A DAY active Not Available Not Available Not Available Lantus Solostar U-100 Insulin 100 unit/mL (3 mL) subcutaneous pen ADMINISTER 36 UNITS UNDER THE SKIN IN THE MORNING active Not Available Not Available No t Available Prodigy Voice Glucose Meter kit USE TO CHECK BLOOD SUGAR THREE TIMES DAILY active Not Available Not Available Not Available Prodigy Twist Top Lancet 28 gauge USE TO TEST BLOOD SUGAR THREE TIMES DAILY active Not Available Not Available No t Available Jardiance 10 mg tablet TAKE 1 TABLET BY MOUTH DAILY active Not Available Not Available Not Available Jardiance 25 mg tablet TAKE 1 TABLET BY MOUTH DAILY active Not Available Not Available Not Available Rhopressa 0.02 % eye drops INSTILL 1 DROP IN BOTH EYES EVERY EVENING active Not Available Not Available No t Available Vitals Date Recorded Heart rate Respiratory rate Oxygen saturation Oxygen saturation in Arterial blood by Pulse oximetry Body temperature Systolic blood pressure Diastolic blood pressure Provider Name and Address Organization Details Last Updated DateTime 2 79 /min 16 /min 100 % 100 % 98 [degF] 113 mm[Hg] 70 mm[Hg] Emily Kenny MD [address] [place] [address],[address], [place], [address] [place] [address] [facility] 2 12:54:08 Social History None recorded. Functional Status None recorded. Mental Status None recorded. Family History Nothing Reported. Medical History No medical history recorded. Gynecological HistoryNo gynecological history recorded. Obstetrics History GPAL:G 0 P 0 0 0 0 Past Encounters Encounter ID Performer Location Encounter Start Date Encounter Closed Date Diagnosis/Indication Diagnosis SNOMED-CT Code Diagnosis ICD10 Code Diagnosis Note [id number] Emily Kenny MD [address] [address] 08/06/2021 12:36:20 01/27/2022 15:47:39 Migraine [id number] G43.909 Presenting with 3 days of migraine-t ype BUTT. No prior hx migraines, onset of primary migraine d/o after age 48 atypical. No head trauma, fever/neck stiffness, or other red flags to warrant emergent ANESTHESIOLOGY TECH imaging. However, given 3 wks of progressiv e vision loss (per pt hx diagnosed as glaucoma and receiving injection and drops) would warrant in person exam to r/o increased ICP. Acute angle closure glaucoma less likely given lack of eye pain, erythema. Instructed to trial adequate doses of OTC meds (ibuprofen 600 mg q6hr and APAP 1g q6hr) and if no improvemen t in 24 hr requires in person eval (urgent PCP vs ED if PCP not available) . Red flag symptoms reviewed w/ pt that would warrent more urgent ED eval. Questions answered. Health Concerns Section Related Observation LastModified by Organization Detai ls LastModified Time None Recorded Concern Status LastModified by Organization Details LastModified Time None Recorded Advance Directives Directive None Recorded Payers Insurance Date Sequence Insurance Name Policy Number Policy Still Covered Member ID Still Member ID Guarantor Name 11/10/2023 1 [facility] - DOS PRIOR TO 2022 - DUAL ELIGIBLE (MEDICARE REPLACEMENT/AD VANTAGE - HMO) Joann Ceballos [id number] Joann Ceballos 11/10/2023 1 [facility] - DOS ON OR AFTER 2022 - DUAL ELIGIBLE - [employer] OPTIONS AND ONE CARE (MEDICARE REPLACEMENT/AD VANTAGE - HMO) Joann Ceballos [id number] Joann Ceballos Notes Date Note Type Note Provider Name and Address Organization Details Recorded Time 08/06/2021 text/html Per request: Marixa alejandro is being treated for Vision loss 3 weeks ago secondary to glaucoma > she is getting injections in her eyes and drops > question of surgery in the future. She has had a severe migraine for 3 days, unrelieved by OTC meds. Member c/o dizziness/ sensitivity to light and nausea. Per hx I obtained over the phoneAcute bilateral vision loss 3 wk ago, seen by specialist and diagnosed w/ glaucoma, receiving IO injections and drops, now can just see shadowsNo known malignancyHeadache not positional, no head traumaNo worsening of vision loss, haloes, acute eye painNot worst headache of life, but first w/ migraine type (+photophobia and phonophobia)Not improved w/ ibuprofen (400 mg qAM)+ nausea in AM w/o vomitingNo falls, head trauma, or focla neurologic deficits Emily Kenny MD [address] [facility],[address], [place], [address], [employer] - [employer] 08/06/2021 13:21:30 OBGyn Episode No OBEpisode recorded.
== END 2024-12-01 10:37 | disposition home or self-care (01) ==
LOC: HO.HGI 09:42
PROVIDERS: PCP Internal Medicine; Visit Provider Nurse Practitioner
DX: K58.2 Mixed irritable bowel syndrome (principal); R10.10 Upper abdominal pain, unspecified; R19.7 Diarrhea, unspecified
CPT/HCPCS: 99214

== ENCOUNTER → 2024-12-26 08:10 | Outpatient (REF) | payer OTHER, SELFPAY ==
--- NOTE | ~2024-12-26 | NM_ITS ---
EXAMINATION: OR RADIONUCLIDE SOLID FOOD GASTRIC EMPTYING 4-HOUR STUDY CLINICAL INFORMATION: K58.2 - Mixed irritable bowel syndrome COMPARISON: There are no prior studies available for comparison. TECHNIQUE: A standard meal consisting of 4 oz of Egg Beaters brand tagged with 0.95 mCi Tc-99m Sulfur Colloid, 4 oz water and 1 slice of toast with jelly was administered orally to the patient. Images were obtained using a dual head gamma camera in the anterior and posterior projections over of the stomach immediately post ingestion and at hourly intervals up to 4 hours post ingestion. The anterior and posterior counts at each time interval were averaged using the geometric mean and expressed as percentage of the immediate post ingestion counts. FINDINGS: There is visualization of activity in the stomach immediately post ingestion. As the study progresses, there is clearance of activity from the stomach and visualization of progressively increasing small bowel activity. By the end of the study, there is almost no retention noted in the stomach. Retention in the stomach at each time interval was: 1 hour 85% (normal 37%-90%) 2 hours 41% (normal 30%-60%) 3 hours 22% 4 hours 13% (normal 0%-10%) OR/OR gastric emptying study IMPRESSION: Minimally delayed gastric emptying at 4 hours. For solid meal, rapid gastric emptying is less than 30% at 60 minutes. Delayed gastric emptying criteria is more than 60% remaining at 120 minutes or more than 10% at 240 minutes. The 4-hour value is the best discriminator of a normal or abnormal result). Gastric emptying study grading per JNMT Consensus Recommendations in 2008 (https://tech.snmjournals.org/content/36/44) Grade 1 (mild retention): 11-20% at 4h Grade 2 (moderate retention): 21-35% at 4h Grade 3 (severe retention): 36-50% at 4h Grade 4 (very severe retention): >50% retention at 4h Electronically signed by: Manpreet Hallman MD 12/26/2024 01:22 PM EDT
--- OUTSIDE RECORDS SUMMARY | 2024-12-26 08:13 | XMS_ITS | Data Portability ---
Author Organization [employer] [facility] Address [address] [place] [phone] Care Team Providers Care Pick Pulling Machine Tender Name Role Phone [facility] Referring Provider Assessment No assessment recorded. Plan of Treatment [...] blood by Pulse oximetry Body temperature Systolic And Diastolic Provider Name and Address Organization Details Last Updated DateTime 2 79 /min 16 /min 100 % 100 % 98 [degF] 113/70 mm[Hg] Emily Kenny MD [address] [place] [address],[address], [place], [phone] [place] [address] [employer] [facility] 2 12:54:08 Social History None recorded. [...] Code Diagnosis Note [id number] Emily Kenny MD [address] [address] 08/06/2021 12:36:20 01/27/2022 15:47:39 Migraine [id number] G43.909 Presenting with 3 days of migraine-t ype BUTT. No prior hx migraines, onset of primary migraine d/o after age 48 atypical. No head trauma, fever/neck stiffness, or other red flags to warrant emergent CHART CALCULATOR imaging. However, given 3 wks of progressiv [...] Still Member ID Guarantor Name 11/10/2023 1 [facility] - DOS PRIOR TO 2022 - DUAL ELIGIBLE (MEDICARE REPLACEMENT/AD VANTAGE - HMO) Joann Ceballos [id number] Joann Ceballos 11/10/2023 1 [facility] - DOS ON OR AFTER 2022 - DUAL ELIGIBLE - [facility] OPTIONS AND ONE CARE (MEDICARE REPLACEMENT/AD VANTAGE - HMO) Joann Ceballos [id number] Joann Ceballos Notes Date Note Type Note [...] focla neurologic deficits Emily Kenny MD [address] [facility],[address], [place], [address], [employer] 08/06/2021 13:21:30 OBGyn Episode No OBEpisode recorded.
--- OUTSIDE RECORDS SUMMARY | 2024-12-26 08:13 | XMS_ITS | Clinical Summary ---
Author Organization [facility] Address [address] [place] [address] Care Team Providers Care Microelectronics Technician Name Role Phone Unavailable Primary Care Provider Unavailabl e Surgical History Surgery Date Site/Laterality Comments BREAST BIOPSY Right PROCEDURE: BX BREAST; PERC NEEDLE CORE W/IMAG GUID; COMMENT: B9 Medical History Medical History Date Comments Vitamin D deficiency DX:Vitamin D deficiency Age-related macular degeneration DX:Age-related macular degeneration Type 2 diabetes mellitus wit h retinopathy without macular edema (CMS/HCC V24, CMS/HCC V28) DX:Type 2 diabetes mellitus with retinopathy without macular edema (HCC) Family History Medical History Relation Name Comments Diabetes Aunt Diabetes Brother 1 Diabetes Brother 2 Diabetes Father Hypertension Mother 43 Other: a-fib Mother 43 Uterine cancer Mother 43 Diabetes Sister Breast cancer Neg Hx Colon cancer Neg Hx Ovarian cancer Neg Hx Pancreatic cancer Neg Hx Prostate cancer Neg Hx Relation Name Status Comments Aunt Brother 1 Brother 2 Father Maternal Grandfather Maternal Grandmother Mother 43 Alive Paternal Grandfather Paternal Grandmother Sister Social History Tobacco Use Types Packs/Day Years Used Date Smoking Tobacco: Former Cigarettes Smokeless Tobacco: Never Alcohol Use Standard Drinks/Week Comments Yes 0 (1 standard drink = 0.6 oz pur e alcohol) Comments Unknown Sex and Gender Information Value Date Recorded Sex Assigned at Not on file Legal Sex Female 11:46 PM EST Gender Identity Not on file Sexual Orientation Not on file Obstetrics History Last Filed Vital Signs Vital Sign Reading Time Taken Comments Blood Pressure 120/60 05/18/2023 12:36 PM EST Pulse 74 05/18/2023 12:36 PM EST Temperature - - Respiratory Rate - - Oxygen Saturation - - Inhaled Oxygen Concentration - - Weight 63 kg (139 lb) 05/18/2023 12:36 PM EST Height 157.5 cm (5' 2 ) 05/18/2023 12:36 PM EST Body Mass Index 25.42 05/18/2023 12:36 PM EST Plan of Treatment Health Maintenance Due Date Last Done Comments Diabetes: Annual GFR (Glomerular Filtration Rate) 1963 Diabetes: Annual Foot Exam 12/26/1973 Diabetes: Annual Retina Eye Exam 12/26/1973 DTaP,Tdap,and Td Vaccines (1 - Tdap) 12/26/1982 Pneumococcal Vaccine: 50+ Years (1 of 1 - PCV) 12/26/2013 Zoster Vaccines (1 of 2) 12/26/2013 Cholesterol Screening (Lipid Panel) 05/23/2022 Colorectal Cancer Screening: Colonoscopy 05/23/2022 Depression Screening 05/23/2022 HIV Screening 05/23/2022 Hepatitis C Screening 05/23/2022 Social Influencers of Health Screening 05/23/2022 Diabetes: Annual Urine Albumin-Creatinine Ratio (uACR) 05/24/2022 Diabetes: Blood Sugar Control Test (HGBA1C) 05/24/2022 RSV Immunization Adult Patients (1 - Risk 60-74 years 1-dose series) 2023 COVID-19 Vaccine ( season) 2024 08/08/2020, 07/18/2020 Breast Cancer Screening 10/09/2024 10/10/19 23, 01/03/2019, 11/05/2016 Influenza Vaccine (#1) 2025 , 02/17/2017, 04/08/2016, Additional history exists Cervical Cancer Screening: Pap Smear 11/04/2025 11/04/2022, 01/02/2019 HIB Vaccines Aged Out No longer eligi ble based on patient's age to complete this topic HPV Vaccines Aged Out No longer eligi ble based on patient's age to complete this topic Hepatitis A Vaccines Aged Out No long er eligible based on patient's age to complete this topic Hepatitis B Vaccines Aged Out No long er eligible based on patient's age to complete this topic IPV Vaccines Aged Out No longer eligi ble based on patient's age to complete this topic MMR Vaccines Aged Out No longer eligi ble based on patient's age to complete this topic Meningococcal ACWY Vaccine Aged Out N o longer eligible based on patient's age to complete this topic Meningococcal B Vaccine Aged Out No l onger eligible based on patient's age to complete this topic RSV Immunization Patients Under 20 months Aged Out No longer eligible based on patient's age to complete this topic Varicella Vaccines Aged Out No longer eligible based on patient's age to complete this topic Procedures Procedure Name Priority Date/Time Associated Diagnosis Comments PAP SMEAR Routine 11/04/2022 SCREENING MAMMOGRAPHY BI 2-VIEW BREAST INC CAD Routine 10/09/2022 12:32 PM EDT Encounter for screening mammogram for malignant neoplasm of breast from Last 3 Months or Most Recently Relevant to Health Maintenance Results * Pap smear (11/04/2022) 11/04/2022 Narrative HISTORICAL TESTING LAB RESULTING AGENCY - 11/11/2022 4:46 PM EDT [id number] THINPREP PAP, IMAGED: NEGATIVE FOR SQUAMOUS INTRAEPITHELIAL LESION AND MALIGNANCY . MARCELA PORTILLO , FLORIAN(ASCP) (CASE ELECTRONICALLY SIGNED 11 11 2022) RESULT OF APTIMA HIGH RISK HPV ASSAY: HIGH RISK HPV: NEGATIVE (SEROTYPES 16,18,31,33,35,39,45,51,52,56,58,59,66,68) COMPLETED ON 2022-11-05 ADEQUACY: SATISFACTORY ENDOCERVICAL/TRANSFORMATION ZONE COMPONENT ABSENT. SOURCE: THINPREP PAP HPV ANY DX: REFLEX 16 AND 18, CERVICAL, IMAGED CLINICAL INFORMATION: HPV ANY DIAGNOSIS. HORMONES, PAP HX NEGATIVE, [Z01.419] us Marivel Thomason CNM LAB CYTOLOGY ORDERABLES Sisi l Result HISTORICAL TESTING LAB RESULTING AGENCY * SCREENING MAMMOGRAPHY BI 2-VIEW BREAST INC CAD (10/09/2022 12:32 PM EDT) Anatomical Region Laterality Modality Radiographic Patricia ging 07/14/2021 10:1 3 AM EST Narrative 10/12/2022 12:39 PM EDT This is a summary report. The complete report is available in the patient's medical record. If you cannot access the medical record, please contact the sending organization for a detailed fax or copy. Full field digital screening tomosynthesis mammography, reviewed with CAD and compared to previous. The breasts are composed of fatty and fibroglandular tissue. No suspicious mass, architectural distortion or suspicious calcifications are identified. IMPRESSION: : No mammographic evidence of malignancy. BIRADS 1-Negative; N. 5 year breast cancer risk assessment N/A Lifetime breast cancer risk assessment N/A Breast cancer risk category Breast cancer risk not assessed Procedure Note Ivonne Brush MD - 07/19/2023 This is a summary report. The complete report is available in thepatient's medical record. If you cannot access the medical record, pleasecontact the sending organization for a detailed fax or copy. Full field digital screening tomosynthesis mammography, reviewed with CADand compared to previous. The breasts are composed of fatty andfibroglandular tissue. No suspicious mass, architectural distortion orsuspicious calcifications are identified. IMPRESSION: : No mammographic evidence of malignancy. BIRADS 1-Negative; N. 5 year breast cancer risk assessment N/A Lifetime breast cancer risk assessment N/A Breast cancer risk category Breast cancer risk not assessed Dionisio Johnson MD IMG XR PROCEDURES Final Result from Last 3 Months or Most Recently Relevant to Health Maintenance
== END ==
LOC: HO.NUCMED 08:10
PROVIDERS: PCP Internal Medicine; Visit Provider Nurse Practitioner
DX: K58.2 Mixed irritable bowel syndrome (principal); R10.10 Upper abdominal pain, unspecified; R19.7 Diarrhea, unspecified
CPT/HCPCS: 78264; A9541

== ENCOUNTER → 2024-12-26 08:12 | Outpatient (BNV) | payer OTHER, SELFPAY | PROVIDERS: PCP Internal Medicine; Visit Provider Radiology Diagnostic Radiology | DX: K58.2 Mixed irritable bowel syndrome (principal) | CPT/HCPCS: 78264 ==

== ENCOUNTER 2025-01-04 10:43 | Outpatient (AMB) | payer OTHER, SELFPAY ==
--- NOTE | 2025-01-04 10:57 | MHC.OFFVIS ---
Vital Signs 01/04/25 11:01 Height 5 ft 2 in Weight 144 lb 2.917 oz BMI 26.4 BP 117/53 L Blood Pressure Location Lt brachial Position Sitting Pulse 107 H Intake Visit Reasons: 4 wks IBS-M Intake Note: Patient in office today in follow up of labs and gastric emptying scan. CC: Patient states that she continues having increased gas, bloating, IBS - M chronic persistence, belching. Diesel Inspector Required: No Accompanied by: Family/Other Allergies shrimp Allergy (Mild, Verified 01/04/25 11:07) Unknown adhesive tape Allergy (Unknown, Verified 12/01/24 09:50) Rash No Known Drug Allergies Allergy (Unknown, Verified 12/01/24 09:50) none lorazepam Adverse Reaction (Unknown, Verified 12/01/24 09:50) Unknown HPI HPI 4 wks IBS-M: Details: Assessment & Plan (1) Irritable bowel syndrome with both constipation and diarrhea: Code(s): K58.2 - Mixed irritable bowel syndrome Category: Medical (2) Upper abdominal pain: Code(s): R10.10 - Upper abdominal pain, unspecified Category: Medical (3) Diarrhea: Code(s): R19.7 - Diarrhea, unspecified Category: Medical Plan The patient has been lost to follow-up since 04/2023 This started about 8 mos ago suddenly with equal diarrhea alt with [facility]. She had a pelvic and bladder US, no labs, no stool. She was on fiber, senna, bisacodyl, colace and magnesium as they were not helping. Her PCP is out of [place] associated with [facility]. She is also having quite a lot of dyspepsia with a great deal of burping and upset stomach which is limiting how much she can eat. She has a lot of bloating. Despite not being able to eat much she has also gained about 10 lb which she can not well explained. She isn't insulin dependent diabetic and has had some episodes that might be brittle control with her insulin with sweating and feeling generally unwell. Her A1c is been about 8% per her report. She does have early satiety. She occasionally has discomfort in the left upper quadrant but no severe abdominal pain. The differential diagnosis is quite wide but I think her diabetes control definitely factors into how the GI system is reacting. I think we need to get a thyroid to explore her complaint of weight gain along with a gastric emptying study. Also some basic labs along with some food allergy testing to see if there is any other contributing factors to the diarrheal phase and also consider the possibility of exocrine pancreatic insufficiency along with SIBO. Return office visit in 4 weeks Orders: Orders C Reactive Protein 12/01/24 K58.2 - Mixed irritable bowel syndrome, R10.10 - Upper abdominal pain, unspecified, R19.7 - Diarrhea, unspecified Transglutaminase IgA 12/01/24 K58.2 - Mixed irritable bowel syndrome, R10.10 - Upper abdominal pain, unspecified, R19.7 - Diarrhea, unspecified Transglutaminase Ab IgG 12/01/24 K58.2 - Mixed irritable bowel syndrome, R10.10 - Upper abdominal pain, unspecified, R19.7 - Diarrhea, unspecified TSH reflex Free T4 12/01/24 K58.2 - Mixed irritable bowel syndrome, R10.10 - Upper abdominal pain, unspecified, R19.7 - Diarrhea, unspecified NM gastric emptying study 12/01/24 K58.2 - Mixed irritable bowel syndrome, R10.10 - Upper abdominal pain, unspecified, R19.7 - Diarrhea, unspecified Hemoglobin A1c 12/01/24 K58.2 - Mixed irritable bowel syndrome, R10.10 - Upper abdominal pain, unspecified, R19.7 - Diarrhea, unspecified Comprehensive Met. Panel 12/01/24 K58.2 - Mixed irritable bowel syndrome, R10.10 - Upper abdominal pain, unspecified, R19.7 - Diarrhea, unspecified US abdomen complete 12/01/24 K58.2 - Mixed irritable bowel syndrome, R10.10 - Upper abdominal pain, unspecified, R19.7 - Diarrhea, unspecified Medications: Discontinued loperamide Discontinued Reason: Patient no longer taking 4 mg (2 x 2 mg) PO BEDTIME 60 caps 3RF loose stool K52.1 - Toxic gastroenteritis and colitis Labs: Laboratory Tests 12/01/24 11:19 Estimated GFR > 60 Hemoglobin A1c % 8.2 H Total Bilirubin 0.3 AST 35 H ALT 34 H Alkaline Phosphatase 91 C-Reactive Protein 0.22 TSH 0.64 Shrimp Allergen IgE Ab 0.14 H Tiss Transglutamin IgG <1.0 Tiss Transglutamin IgA <1.0 ULTRASOUND OF THE ABDOMEN 01/17/2025 GASTRIC EMPTYING STUDY 12/26/24 FINDINGS: There is visualization of activity in the stomach immediately post ingestion. As the study progresses, there is clearance of activity from the stomach and visualization of progressively increasing small bowel activity. By the end of the study, there is almost no retention noted in the stomach. Retention in the stomach at each time interval was: 1 hour 85% (normal 37%-90%) 2 hours 41% (normal 30%-60%) 3 hours 22% 4 hours 13% (normal 0%-10%) NM/NM gastric emptying study IMPRESSION: Minimally delayed gastric emptying at 4 hours. TODAY'S VISIT She tells me she is very unhappy that it took 4 weeks to get her allergy results. This is rightfully so as she was fearful that she could have had a severe reaction and she had seafood for her birthday as she really enjoys lobster etc.. I let her know that she is not allergic to whites this salmon and scallops and I am not certain about lobster. We did find that she has a slight delay on her gastric emptying study. Given that she has a mixed presentation of constipation with diarrhea I am somewhat reluctant to treat this from below with a laxative as it could worsen the diarrhea. I also am hesitant about doing metoclopramide 4 times a day scheduled for the same reasons. I think because the delay is mild we will start cautiously using it as a p.r.n. dose since she says she does have some warning when she is going to have a bad time with her stomach. We reviewed all of the possible effects and side effects and of course she should stopped the medication and contact our office if she has any untoward problems with the medication. The ultrasound is upcoming. Return office visit in 4 weeks [facility] Medical History (Updated 01/04/25 @ 11:38 by Estela Cárdenas, ANP-C) Constipation by delayed colonic transit Diarrhea due to drug Insomnia High cholesterol Painful diabetic neuropathy Mixed irritable bowel syndrome BAKARI (obstructive sleep apnea) Diabetic neurogenic arthropathy Diabetes 1.5, managed as type 2 Tubular adenoma of colon Surgical History History of esophagogastroduodenoscopy (EGD) Hx of colonoscopy Family History Mother No problems noted. Father No problems noted. Social History Household Members: None Household Members Other:: grandchild Housing: Apartment Alcohol intake: current Alcohol intake frequency: holidays/special occasions only Alcohol type: wine Patient Tobacco Use Status: Never used Tobacco Current occupational status: disabled Review of Systems Const Denies fatigue, Denies fever(s), Denies night sweats, Denies poor appetite and Denies weight loss Eyes Details: glasses Reports blind spots and Reports requires corrective lenses ENT Reports Normal hearing present, Denies dental pain, Denies dysphagia, Denies hearing loss, Denies mouth pain, Denies odynophagia, Denies throat swelling, Denies tongue swelling and Reports other (Dentition adequate) Card Reports no additional complaints Resp Reports no additional complaints GI Details: Reports abdominal pain, Denies melena, Reports bloating, Denies hematochezia, Denies constipation, Denies GI cramping, Denies dysphagia, Denies excessive flatus, Reports early satiety, Reports heartburn, Denies diarrhea, Reports nausea, Denies odynophagia, Denies vomiting and Denies hematemesis Skin/Breast Denies pruritus, Denies lesions, Denies rash and Denies jaundice Neuro Reports Normal hearing present and Denies Abnormal speech present Endo Denies fatigue Aller/Immun Denies throat swelling and Denies tongue swelling Physical Exam Vital Signs: Last Vital Signs Pulse 107 H 01/04/25 11:01 BP 117/53 L 01/04/25 11:01 BMI result Body Mass Index 26.4 Const General: cooperative, no acute distress, well developed and well groomed Nutritional Appearance: well nourished and overweight Orientation/consciousness: oriented to person, oriented to place and oriented to time Limitations: No language barrier and other limitations (Legally blind) HEENT Head: Yes normocephalic and Yes atraumatic Neck Neck: Yes normal visual inspection and Yes no lymphadenopathy Thyroid: Thyroid normal Resp Effort & Inspection: normal respiratory effort and able to speak in complete sentences Auscultation: clear to auscultation bilaterally Cardio Rate: regular rate Rhythm: regular rhythm Heart sounds: Normal, physiologic split S2 sound present Peripheral pulses: radial pulses present and posterior tibial pulses present GI Inspection: No distended, No Abdominal panniculus present and Yes obesity Palpation (GI): Soft to palpation, nontender, no guarding, not rigid and No hepatosplenomegaly present Percussion: Yes normal to percussion Auscultation: normal bowel sounds Rectal Exam - Female: deferred Skin General skin exam: no rashes or lesions noted, turgor normal, skin not dry, no jaundice, No spider nevi and no striae Rashes: no rashes Nails: normal Neuro General: oriented to person, oriented to place and oriented to time Cranial nerves: Yes Normal hearing present Speech: No Abnormal speech present Extrem General: Yes normal to inspection, No clubbing, No cyanosis and No edema Psych Appearance: grossly normal and well kempt Mental Status: mental status grossly normal Speech and movement: Normal speech and movement present Affect: normal affect Attitude: cooperative Thought process: Normal thought process present and not confabulating Thought content: Normal thought content present Insight: Good insight present (Psych) Judgement: Good judgement present (Psych) Results Reviewed Results Reviewed: Laboratory Tests 12/01/24 11:19 Estimated GFR > 60 Hemoglobin A1c % 8.2 H Total Bilirubin 0.3 AST 35 H ALT 34 H Alkaline Phosphatase 91 C-Reactive Protein 0.22 TSH 0.64 Shrimp Allergen IgE Ab 0.14 H Tiss Transglutamin IgG <1.0 Tiss Transglutamin IgA <1.0 GASTRIC EMPTYING STUDY 12/26/24 FINDINGS: There is visualization of activity in the stomach immediately post ingestion. As the study progresses, there is clearance of activity from the stomach and visualization of progressively increasing small bowel activity. By the end of the study, there is almost no retention noted in the stomach. Retention in the stomach at each time interval was: 1 hour 85% (normal 37%-90%) 2 hours 41% (normal 30%-60%) 3 hours 22% 4 hours 13% (normal 0%-10%) NM/NM gastric emptying study IMPRESSION: Minimally delayed gastric emptying at 4 hours. Assessment & Plan Assessment & Plan (1) Irritable bowel syndrome with both constipation and diarrhea: Code(s): K58.2 - Mixed irritable bowel syndrome Category: Medical (2) Upper abdominal pain: Comment: 11/2024 MILD DELAY IN GASTRIC EMPTYING ON GES Code(s): R10.10 - Upper abdominal pain, unspecified Category: Medical (3) Diarrhea: Code(s): R19.7 - Diarrhea, unspecified Category: Medical (4) Functional dyspepsia: Comment: 11/2024 MILD DELAY IN GASTRIC EMPTYING ON GES Code(s): K30 - Functional dyspepsia Category: Medical Plan She tells me she is very unhappy that it took 4 weeks to get her allergy results. This is rightfully so as she was fearful that she could have had a severe reaction and she had seafood for her birthday as she really enjoys lobster etc.. I let her know that she is not allergic to whites this salmon and scallops and I am not certain about lobster. We did find that she has a slight delay on her gastric emptying study. Given that she has a mixed presentation of constipation with diarrhea I am somewhat reluctant to treat this from below with a laxative as it could worsen the diarrhea. I also am hesitant about doing metoclopramide 4 times a day scheduled for the same reasons. I think because the delay is mild we will start cautiously using it as a p.r.n. dose since she says she does have some warning when she is going to have a bad time with her stomach. We reviewed all of the possible effects and side effects and of course she should stopped the medication and contact our office if she has any untoward problems with the medication. The ultrasound is upcoming. Return office visit in 4 weeks ULTRASOUND OF THE ABDOMEN 01/17/2025 Medications: New metoclopramide HCl (Reglan) 5 mg PO TID PRN 90 tabs 3RF nausea and vomiting K30 - Functional dyspepsia Coding Level of Care Code Est Pt Level 3 (54273) Diagnoses Irritable bowel syndrome with both constipation and diarrhea K58.2 Upper abdominal pain R10.10 Diarrhea R19.7 Functional dyspepsia K30
[2025-01-04 11:01] VITALS: BP 117/53; PULSE 107; BMI 26.4
--- OUTSIDE RECORDS SUMMARY | 2025-01-04 11:35 | XMS_ITS | Encounter Summary ---
Author Organization [facility] Address [address] [place] [address] Phone Care Team Providers Care Heel Sprayer Name Role Phone Nicki Rodas NP Primary Care Provider [phone] Encounter Details Date Type Department Care Team (Late st Contact Info) Description 10/11/2024 Procedure Pass [facility], Ct Scan - [address] [address] Social History Tobacco Use Types Packs/Day Years Used Date Smoking Tobacco: Former Cigarettes Q uit: 2012 Smokeless Tobacco: Never Alcohol Use Standard Drinks/Week Comments Yes 0 (1 standard drink = 0.6 oz pur e alcohol) wine occasional drink Education Answer Date Recorded Are you interested in more education? Not on hiwot e 10/10/2022 Are you concerned about learning? Not on file 10/10/2022 No 10/10/2022 No 10/10/2022 Digital Access Answer Date Recorded No 11/10/2022 No 11/10/2022 Reliable internet access at home? Not on file 11/10/2022 Device with a working camera? Not on file Intimate Partner Violence Answer Date R ecorded Are you denied basic needs s uch as food, clothing, or medical care? No 07/13/2023 In the past 12 months have y ou been in a relationship with a person who hurts, threatens, or tries to control you? No 07/13/2023 Are you denied basic needs s uch as food, clothing, or medical care? No 07/13/2023 In the past 12 months have y ou been in a relationship with a person who hurts, threatens, or tries to control you? No 07/13/2023 Comments No Sex and Gender Information Value Date Recorded Sex Assigned at Female 02/18/2023 10:19 AM EDT Legal Sex Female 11:45 AM EST Gender Identity Female 02/18/2023 10:19 AM EDT Sexual Orientation Straight 02/18/2023 10 :19 AM EDT documented as of this encounter Functional Status * Calculated C-SSRS Risk Score (Lifetime/Recent) Answer Date of Assessment Author No Risk Indicated 10/11/2024 2:30 PM EDT Jenni Salazar RN * [place] Suicide Severity Rating Scale (Screener/Recent Self-Report) Question Answer Date of Assessment Author 1. Wish to be (Past 1 Month) No 025 2:30 PM EDT Jenni Salazar RN 2. Non-Specific Active Suici jessie Thoughts (Past 1 Month) No 10/11/2024 2:30 PM EDT Jenni Salazar RN 6. Suicidal Behavior (Lifetime) No 2:30 PM EDT Jenni Salazar RN documented as of this encounter Plan of Treatment Not on file documented as of this encounter Visit Diagnoses Not on filedocumented in this encounter Care Teams Heel Sprayer Relationship Specialty Start Date End Date Nicki Rodas NP [address] [place] [id number] PCP - General Nurse Practitioner 10/11/24 documented as of this encounter Additional Source Comments The information contained in this document represents components of the legal health record. It is not the complete legal health record.[facility]
--- OUTSIDE RECORDS SUMMARY | 2025-01-04 11:35 | XMS_ITS | Clinical Summary ---
Author Organization [facility] ity Address [address] [place] [address] Care Team Providers Care Parking Enforcement Specialist Name Role Phone Unavailable Primary Care Provider [...] Panel) 05/23/2022 Colorectal Cancer Screening: Colonoscopy 05/23/2022 HIV Screening 05/23/2022 Hepatitis C Screening 05/23/2022 Social Influencers of Health Screening 05/23/2022 Diabetes: Annual Urine Albumin-Creatinine Ratio (uACR) 05/24/2022 Diabetes: Blood Sugar Control Test (HGBA1C) 05/24/2022 RSV Immunization Adult Patients (1 - Risk 60-74 years 1-dose series) 2023 COVID-19 Vaccine (2023- season) 2024 08/08/2020, 07/18/2020 Depression Screening 06/14/2024 Breast Cancer Screening 10/09/2024 10/10/19 23, 01/03/2019, [...] RESULTING AGENCY - 11/11/2022 4:46 PM EDT [id number] THINPREP PAP, IMAGED: NEGATIVE FOR SQUAMOUS INTRAEPITHELIAL [...]
--- OUTSIDE RECORDS SUMMARY | 2025-01-04 11:35 | XMS_ITS | Data Portability ---
Author Organization [facility] Address [address] [place] [id number] Care Team Providers Care Dry Cleaning Attendant Name Role Phone [facility] Referring Provider [phone] Assessment No assessment recorded. Plan of Treatment [...] 98 [degF] 113/70 mm[Hg] Emily Kenny MD [address] [place] [address],[address], [place], [address] [place] [address] [employer] [facility] 2 12:54:08 Social History None recorded. Functional Status None recorded. Mental Status None recorded. Family History Nothing Reported. Medical History No medical history recorded. Gynecological HistoryNo gynecological history recorded. Obstetrics History GPAL:G 0 P 0 0 0 0 Past Encounters Encounter ID Performer Location Encounter Start Date Encounter Closed Date Diagnosis/Indication Diagnosis SNOMED-CT Code Diagnosis ICD10 Code Diagnosis Note [id number] Emily Kenny MD [address] [address] 08/06/2021 12:36:20 01/27/2022 15:47:39 Migraine [id number] G43.909 Presenting with 3 days of migraine-t ype BUTT. No prior hx migraines, onset of primary migraine d/o after age 50 atypical. No head trauma, fever/neck stiffness, or other red flags to warrant emergent ENROLLMENT COORDINATOR imaging. However, given 3 wks of progressiv [...] Still Member ID Guarantor Name 11/10/2023 1 [facility] - DOS PRIOR TO 2022 - DUAL ELIGIBLE (MEDICARE REPLACEMENT/AD VANTAGE - HMO) Joann Ceballos 111 Joann Ceballos 11/10/2023 1 [facility] - DOS ON OR AFTER 2022 - DUAL ELIGIBLE - CARE HOME OPTIONS AND ONE CARE (MEDICARE REPLACEMENT/AD VANTAGE - HMO) Joann Ceballos [id number] Joann Ceballos Notes Date Note Type Note Provider Name and Address Organization Details Recorded Time 08/06/2021 text/html Per request: Member is being treated for Vision loss 3 [...] focla neurologic deficits Emily Kenny MD [address] [facility], [place], [address], [employer] 08/06/2021 13:21:30 OBGyn Episode No OBEpisode recorded.
== END 2025-01-04 11:44 | disposition home or self-care (01) ==
LOC: HO.HGI 10:43
PROVIDERS: PCP Internal Medicine; Visit Provider Nurse Practitioner
DX: K58.2 Mixed irritable bowel syndrome (principal); R10.10 Upper abdominal pain, unspecified; R19.7 Diarrhea, unspecified; K30 Functional dyspepsia
CPT/HCPCS: 99213

== ENCOUNTER → 2025-01-04 10:43 | Outpatient (BNVA) | payer OTHER, SELFPAY | PROVIDERS: PCP Internal Medicine; Visit Provider Nurse Practitioner | DX: K58.2 Mixed irritable bowel syndrome (principal); R10.10 Upper abdominal pain, unspecified; R19.7 Diarrhea, unspecified; K30 Functional dyspepsia | CPT/HCPCS: 99212 ==

== ENCOUNTER 2025-01-17 08:22 | Outpatient (REF) | payer OTHER, SELFPAY ==
--- NOTE | ~2025-01-17 | US_ITS ---
CLINICAL HISTORY: K58.2 - upper abd pain US abdomen complete Comparison: None provided Findings: The visualized pancreas is normal, distal tail is obscured by bowel gas. The visualized aorta and inferior vena cava are normal caliber. The liver is normal in size, right lobe length is 13.6 cm. Diffusely increased echogenicity of the liver parenchyma. No discrete lesion is visualized in the imaged liver. No intrahepatic bile duct dilatation. The common duct is 5 mm in diameter. The gallbladder is normal. Negative sonographic Abraham sign. The main portal vein is patent with antegrade flow. The right kidney is normal, 12.0 cm in length. The left kidney is normal, 10.2 cm in length. The spleen is normal, 8.2 cm in length. No free fluid in the abdomen. Impression: Echogenic liver parenchyma is nonspecific, commonly seen in steatosis or chronic hepatitis. This document has been electronically signed by: Aida Elkins MD on 01/17/2025 14:38:34
--- OUTSIDE RECORDS SUMMARY | 2025-01-17 08:31 | XMS_ITS | Clinical Summary ---
Author Organization [facility] Address [address] [place] [address] Care Team Providers Care Laundry Superintendent Name Role Phone Unavailable Primary Care Provider [...] RESULTING AGENCY - 11/11/2022 4:46 PM EDT [id number] THINPREP PAP, IMAGED: NEGATIVE FOR SQUAMOUS INTRAEPITHELIAL [...]
--- OUTSIDE RECORDS SUMMARY | 2025-01-17 08:31 | XMS_ITS | Encounter Summary ---
Author Organization [facility] Address [address] [facility] [address] [place] [address] Phone Care Team Providers Care Talent Acquisition Consultant Name Role Phone Nicki Rodas NP Primary Care Provider [phone] Encounter Details Date Type Department Care Team (Late st Contact Info) Description 10/11/2024 Procedure Pass [facility], Ct Scan - [address] [address] Social History Tobacco Use Types Packs/Day Years [...] 2:30 PM EDT Jenni Salazar RN * [place] Suicide Severity Rating Scale (Screener/Recent Self-Report) Question [...] on filedocumented in this encounter Care Teams Talent Acquisition Consultant Relationship Specialty Start Date End Date Nicki Rodas NP [address] [place] [id number] PCP - General Nurse Practitioner 10/11/24 documented as of this encounter Additional Source Comments The information contained in this document represents components of the legal health record. It is not the complete legal health record.[facility]
== END 2025-01-17 08:23 | disposition home or self-care (01) ==
LOC: HO.US 08:22
PROVIDERS: PCP Internal Medicine; Visit Provider Nurse Practitioner
DX: K58.2 Mixed irritable bowel syndrome (principal); R10.10 Upper abdominal pain, unspecified; R19.7 Diarrhea, unspecified
CPT/HCPCS: 76700

== ENCOUNTER → 2025-01-17 08:29 | Outpatient (BNV) | payer OTHER, SELFPAY | PROVIDERS: PCP Internal Medicine; Visit Provider Radiology Diagnostic Radiology | DX: K58.2 Mixed irritable bowel syndrome (principal); K76.89 Other specified diseases of liver | CPT/HCPCS: 76700 ==